=== PATIENT | female | born 1930 | race Caucasian/White ===

== ENCOUNTER 2017-01-22 07:00 | Day surgery (SDC) | payer MEDICARE, OTHER ==
[~2017-01-22] VITALS: Ht 147.3 cm; Wt 60.1 kg
[2017-01-22] MEDS ORDERED: diphenhydrAMINE 25 mg Capsule PO ONE (08:20)
[2017-01-22 09:37] VITALS: BP 121/56; PULSE 72; RESP 18; O2SAT 98
[2017-01-22 10:15] VITALS: BP 120/58; PULSE 70; RESP 18
[2017-01-22] MEDS ORDERED: METO25TA99 PO (10:49)
[2017-01-22] MEDS ORDERED: NIAC100045 PO (10:49)
[2017-01-22] MEDS ORDERED: GABA600T2 PO ×2 (10:49)
[2017-01-22] MEDS ORDERED: POLY17PO6 PO (10:49)
[2017-01-22] MEDS ORDERED: DORZ10DR20 OP (10:49)
[2017-01-22] MEDS ORDERED: CHOL500062 PO (10:49)
[2017-01-22] MEDS ORDERED: PRE625 PO (10:49)
[2017-01-22] MEDS ORDERED: OXYC-565 PO (10:49)
[2017-01-22] MEDS ORDERED: DULO30CA50 PO (10:49)
[2017-01-22] MEDS ORDERED: GABA-502 PO (10:49)
[2017-01-22] MEDS ORDERED: ACET325C PO (10:49)
[2017-01-22] MEDS ORDERED: ESOM40CA53 PO (10:49)
[2017-01-22] MEDS ORDERED: IMP25T PO (10:49)
[2017-01-22] MEDS ORDERED: HYDR25TA4 PO (10:49)
[2017-01-22 12:34] VITALS: BP 131/60; PULSE 75; RESP 18
[2017-01-22 13:22] VITALS: BP 125/60; PULSE 72; RESP 18
[2017-01-22 15:33] VITALS: BP 129/60; PULSE 78; RESP 18
--- NOTE | 2017-01-22 17:20 | NUR ---
2 unit prbc pt tolerated both units of PRBC well; vital signs remained stable throughout and post escorted on/off unit by son with transportation through [facility] pt returning to [facility]; care summary sent with pt
== END 2017-01-22 23:59 | disposition home or self-care (01) ==
LOC: MOCO 07:00
PROVIDERS: ATTEND Internal Medicine
DX: D50.9 Iron deficiency anemia, unspecified (principal)
CPT/HCPCS: 36415; 36430; 85014; 85018; 86922; J7050; P9021

== ENCOUNTER → 2017-05-02 | Day surgery (SDC) | payer MEDICARE, OTHER ==
[~2017-05-02] VITALS: Ht 147.3 cm; Wt 52.2 kg
[~2017-05-02] MED LIST: ACET325C PO; CELE100C PO; CHOL500062 PO; DIPH-847 PO; DORZ10DR20 OP; DULO30CA50 PO; ESOM20TA PO; GABA-502 PO; GABA600T2 PO; HYDR-3797 PO; HYDR25TA4 PO; IMP25T PO; LOSA50TA37 PO; Lactated Ringer's 1,000 ML IV ONE; Lactated Ringer's 1,000 ML IV SCH; METO25TA3 PO; MetoCLOpramide 5 mg/mL 2 mL Inj IVPUSH PRN; NIAC100045 PO; OMEP20CA11 PO; OXYC-565 PO; Ondansetron 2 mg/mL 2 mL Inj IVPUSH PRN; POLY17PO6 PO; PRE625 PO; Propofol 10,000 mCg/mL 20 mL Inj ONE; SENN-133 PO
[2017-05-02 14:29] VITALS: BP 142/69; PULSE 81; RESP 14; O2SAT 100
[2017-05-02 15:06] VITALS: BP 102/56; PULSE 66; RESP 16; O2SAT 100
[2017-05-02 15:23] VITALS: BP 123/66; PULSE 68; RESP 16; O2SAT 100
--- NOTE | 2017-05-02 19:06 | ENDO ---
[address] [address] ENDOSCOPY PROCEDURE PATIENT: VENKAT RUIZ : 1930 MR#: [id number] ADMIT: 05/02/2017 JOB ID: [id number] DATE OF SERVICE: 05/02/2017 TYPE OF OPERATION: Esophagogastroduodenoscopy, biopsy, colonoscopy. PREOPERATIVE DIAGNOSIS: Epigastric pain, weight loss. POSTOPERATIVE DIAGNOSIS: Normal upper endoscopy, status post biopsy. Normal colonoscopy. ANESTHESIA: Monitored anesthesia care. COMPLICATIONS: None. BLOOD LOSS: Minimal. DESCRIPTION OF PROCEDURE: After risks and benefits explained to the patient, informed consent was obtained. After anesthesia administered, upper endoscope was then inserted in the mouth, intubated into the esophagus, stomach, second portion of duodenum. Mucosa carefully examined. After procedure was done, the scope was withdrawn, procedure terminated. Colonoscope was then inserted from the rectum to the cecum. Mucosa carefully examined. Prep of the patient was excellent. After procedure was done, the scope withdrawn, procedure terminated. FINDINGS: Upon inspection of the esophagus, esophagus was normal without masses, ulcers, lesions. Z-line located at 40 cm from incisors. Upon entering the stomach, the stomach was also normal without masses, ulcers, or lesions. Retroflexion of the duodenal bulb, second portion were normal. Biopsies taken of duodenum, antrum and body of stomach. On inspection of the anus, no masses, hemorrhoids, ulcers, or fissures that were seen throughout the entire examination. No polyps, masses or lesions. Retroflexion normal. IMPRESSIONS: 1. Normal colonoscopy. 2. Normal upper endoscopy, status post biopsy. RECOMMENDATION: Await pathology results. Follow up in GI clinic as needed.
--- NOTE | 2017-05-02 19:29 | PCM.ANEP1 ---
Post Anesthesia PACU Phase 1 Assessment Vital Signs Vital Signs Date Time Temp Pulse Resp B/P Pulse Ox O2 Delivery O2 Flow Rate FiO2 05/02/17 15:23 68 16 123/66 100 Room Air 05/02/17 15:06 66 16 102/56 100 Room Air 05/02/17 14:29 36.1 81 14 142/69 100 Room Air Anesthetic Administered: MAC Level of Alertness: Awake, talking SIMS's with Equal Strength: Yes Pain: No Nausea or Vomiting: No CV Function & Hydration Stable: Yes Airway Device: Oxygen Delivery: Room Air Lungs: Clear to Auscultation, Normal Air Movement Dermatome Level: Full Sensation PACU Phase 2 Assessment Complications: No Follow up Care: N/A Patient Instructions Provided: N/A Hernando Ramos MD May 02, 2017 19:29
--- NOTE | 2017-05-02 19:29 | PCM.HPANE ---
Patient Data Surgeon Admitting Provider: Attending Provider:Timmy Bowie MD Primary Care Physician:Heaven Jung Other Provider:Dada Fitzgerald Anesthesia Reason for Visit Epigastric Pain Ht/WT & BMI Height (Feet): 4 Height (Inches): 10 Weight (Kilograms): 52.16 Body Mass Index 24.00 Allergies Coded Allergies: lisinopril (Verified Allergy, Unknown, cough, 01/22/17) Past Anesthesia History Anesthesia History: Denies:: Abnormal Airway, Anesthesia Reactions, Difficult Intubation, Fam Anesthesia Reaction, Fam Malignant Hypertherm, Malignant Hyperthermia Diabetes History Hx Diabetes?: No MRSA MRSA: No Medications Blood Thinner: Aspirin Last Dose Blood Thinner: Apr 18, 2017 Home Meds Incl Beta Mari: No Reported Medications Celecoxib (Celebrex)100 Mg Ezudbsb805 Mg PO DAILY #30 CAPSULE Ref 0 05/02/17 Omeprazole 20 Mg Capsule.dr20 Mg PO DAILY Ref 0 05/02/17 Metoprolol Succinate ER (Toprol XL)25 Mg Ntszpv30 Mg PO DAILY Ref 0 05/01/17 Losartan Potassium 50 Mg Qtoakh34 Mg PO DAILY 05/01/17 Acetaminophen 325 Mg Sgghxfg834 Mg PO PRN 01/22/17 Oxycodone HCl (Oxycodone HCl ER)15 Mg Tab.er.12h5 Mg PO TID PRN PRN 01/22/17 Niacin ER 1,000 Mg Tablet1,000 Mg PO BID 01/22/17 Dorzolamide HCl/Timolol Maleat (Dorzolamide-Timolol Eye Drops)10 Ml Drops1 Gtt OP BID #1 BOTTLE 01/22/17 Cholecalciferol (Vitamin D3) (Vitamin D3)5,000 Unit Tab.rapdis5,000 Unit PO DAILY 01/22/17 Hydrochlorothiazide 25 Mg Zgcdkz94 Mg PO DAILY 30 Days Ref 0 01/22/17 Gabapentin 600 Mg Tugics769 Mg PO HS Ref 0 01/22/17 Gabapentin 300 Mg Ccrgekh834 Mg PO MORNING Ref 0 01/22/17 Duloxetine 30 Mg Capsule.dr30 Mg PO DAILY Ref 0 01/22/17 Discontinued Reported Medications Sennosides (Senna)8.6 Mg Aqdefg90.3 Mg PO DAILY PRN For Constipation 05/01/17 Esomeprazole Magnesium (Nexium 24Hr)20 Mg Tablet.dr40 Mg PO DAILY 05/01/17 Hydroxyzine Pamoate (HydrOXYzine Pamoate)25 Mg Xmqmstk57 Mg PO Q4H PRN For Itching Ref 0 05/01/17 Diphenhydramine HCl (Children's Benadryl Allergy)12.5 Mg Tab.chew25 Mg PO Q4 05/01/17 Polyethylene Glycol 3350 (Miralax)17 Gm Powd.pack17 Gm PO DAILY 01/22/17 Imipramine HCl 25 Mg Tab25 Mg PO HS Ref 0 01/22/17 Estrogens Conjugated (Premarin)0.625 Mg Tablet0.625 Mg PO DAILY 30 Days Ref 0 01/22/17 Metoprolol Succinate ER 25 Mg Tab.er.24h25 Mg PO HS Ref 0 01/22/17 Gabapentin 600 Mg Tablet1,800 Mg PO HS Ref 0 01/22/17 Esomeprazole Magnesium 40 Mg Capsule.dr40 Mg PO DAILY 01/22/17 History History of ENT Problems?: Yes HEENT History: Positive for:: Dysphagia (OCCATIONALY) Hearing Problem Denies:: Abnormal Airway Difficult Intubation Denture Type: None Teeth Condition: Within Normal Limits Hx of Heart Problems?: Yes Cardiovascular History: Positive for:: Hypertension Irregular Heartbeat Denies:: AICD Atrial Fibrillation Chest Pain Pacemaker Valvular Heart Disease Other Cardiac History: OCC PVC SEEN INSIDE TESTER FOR IT Hx of Respiratory Problem?: No Respiratory History: Positive for:: Pneumonia Hx Neurologic Problems?: No Neurological History: Denies:: CVA Hx of GI Problems?: Yes Hx of Problems?: Yes Genitourinary History: Positive for:: Urinary Tract Infection Female Hx: Positive for:: Endometriosis Hx Musculoskeletal Problems?: Yes Musculoskeletal History: Positive for:: Back Injury (s/p fusion) Fibromyalgia Denies:: Joint Replacement Hx of Psycho/Social Problems?: Yes Psycho Social History: Denies:: Anxiety Hx Depression Hx Surgeries?: Yes (HYSTERECTOMY RECTAL PROLAPSE 2 HERNIA INFERTILTY LEFT FOOT NEUROMA) Hx Any Other Health Problems?: Yes Other History: Positive for:: Hospitalization Denies:: Thyroid Disease History Blood Transfusions: Positive for:: Blood Transfusions Hx Diabetes: No Other Pertinent History: GLAUCOMA Smoking Status: Never Smoker Stop/Bang Treated for Sleep Apnea?: No S-Snoring: Do You Snore Loudly: Yes T-Tired: feel tired, fatigued: No O-Obsered: Observed not breath: No P-Blood Pressure: treated: Yes B- Body Mass Index > 35 kg/m2: No A- Age over 50: Yes N- Neck Large Circumference: No G- Gender Male: No BAKARI Total Score: 3 Risk Assessment Category Category 1A: Patient has history of documented sleep apnea, and HAS NOT received any narcotic, sedative or anesthesia administration during this stay. Category 1B: Patient has history of documented sleep apnea, and HAS received any narcotic , sedative or anesthesia administration during this stay Category 2: Patient has SUSPECTED Obstructive Sleep Apnea, and HAS received any narcotic , sedative or anesthesia administration during this stay. Category 3: Patient has SUSPECTED Obstructive Sleep Apnea and HAS NOT received narcotic, sedative or anesthesia administration during this stay. Category 4: Outpatient in Procedural Areas with known sleep apnea or who screen positive for High Risk via the STOP/BANG questionnaire. Exam Exam Vital Signs Vital Signs Date Time Temp Pulse Resp B/P Pulse Ox O2 Delivery O2 Flow Rate FiO2 05/02/17 14:29 36.1 81 14 142/69 100 Room Air General Appearance: Alert, Oriented X3, Cooperative, No Acute Distress HEENT/AIRWAY: MP 2 Lungs: Clear to Auscultation, Normal Air Movement Heart: Exam Unremarkable, Regular Rate/Rhythm, No Murmurs/Rubs/Gallops Plan Impression Patient chart reviewed, patient interviewed and anesthestic plan with risks, benefits, and alternatives discussed, and informed consent obtained. NPO per Anesth. Guidelines: Yes ASA Physical Status: ASA2 Mod Systemic Disease Anesthetic Plan: GA, MAC Bene/Risks/Altern/Consents: Yes HP Complete Prior to Induction: Yes Hernando Ramos MD May 02, 2017 14:40
--- NOTE | 2017-05-07 13:15 | PATH ---
SURGICAL PATHOLOGY Attending Physician:Timmy Bowie MD CASE STATUS: Signed Out PATIENT NAME: VENKAT RUIZ PID: [id number] : 1930 DATE COLLECTED:05/02/2017 00:00 SPECIMEN: 1: Duodenum, Biopsy 2: Stomach, Antrum, Biopsy 3: Gastric, Biopsy CLINICAL HISTORY: 1). DUODENUM BIOPSY 2). ANTRUM BIOPSY 3). BODY BIOPSY FINAL DIAGNOSIS: 1. Duodenum, Biopsy: Superficial portions of small bowel mucosa with no diagnostic abnormality. Focal mucosal erosion is present. Negative for active inflammation, features of sprue, dysplasia, and malignancy. 2. Antrum, Biopsy: Portions of gastric antral mucosa with features of reactive gastropathy. Negative for H. pylori organisms by H&E and immunohistochemistry studies; please see comment. Negative for intestinal metaplasia, dysplasia and malignancy. 3. Gastric Body, Biopsy: Portion of gastric body-type mucosa with no diagnostic abnormality. Rare, dilated fundic glands are present. Negative for H. pylori organisms by H&E and immunohistochemistry studies; please see comment. Negative for intestinal metaplasia, dysplasia and malignancy. ICD10: K29.7 NOTE: IMMUNOHISTOCHEMISTRY: Blocks 2A and 3A: H. pylori: Negative * This test was developed and its performance characteristics determined by [email or web address]. It has not been cleared or approved by the U.S. Food and Drug Administration. The FDA has determined that such clearance or approval is not necessary. This test is used for clinical purposes. It should not be regarded as investigational or for research. GROSS DESCRIPTION: The specimen is received in three formalin filled containers labeled with the patient's name. 1). The specimen is labeled "duodenum" and consists of 3 tiny portions of tissue which aggregate to 0.2 x 0.2 x 0.2 CM. The specimen is entirely submitted in cassette 1A. 2). The specimen is labeled "antrum" and consists of a 0.3 x 0.3 x 0.3 CM portion of tissue which is entirely submitted in cassette 2A. 3). The specimen is labeled "body" and consists of a 0.3 x 0.2 x 0.2 CM portion of tissue which is entirely submitted in cassettes 3A. 05/05/2017VA ICD-9 CODES: CPT CODES: 1: 21839 2: 84218, 27883 3: 17393, 18791 Electronically Signed Out Janki Del Castillo MD [facility] [address], [place] [address] Technical component performed at [facility], [address], [place], [address]
== END | disposition home or self-care (01) ==
LOC: END 00:51
PROVIDERS: ATTEND Internal Medicine Gastroenterology
DX: R10.13 Epigastric pain (principal); Z80.0 Family history of malignant neoplasm of digestive organs; K31.9 Disease of stomach and duodenum, unspecified; R63.4 Abnormal weight loss; K21.9 Gastro-esophageal reflux disease without esophagitis; E78.5 Hyperlipidemia, unspecified; I10 Essential (primary) hypertension; M79.7 Fibromyalgia
CPT/HCPCS: 43239; 45378; J2704; J7120